=== PATIENT | male | born 1965 | race Caucasian/White ===

== ENCOUNTER 2019-03-06 18:53 | Emergency (ER) | payer BC ==
[2019-03-06 19:19] VITALS: BP 137/92
--- NOTE | 2019-03-06 19:32 | UC ---
General HPI - HPI Summary HPI Summary: Friday, pt notes a spot on his L lower leg that he felt was mud. he brsuhed it off but then worried it may have been a tick so he aggressively scratched the site to ensure nothing remained. he is here today because the spot looks pink and he has concern that it is a bullseye. no fever, joint pains or other complaints. - History of Current Complaint Chief Complaint: NEPTALIkin Stated Complaint: TICK Time Seen by Provider: 03/06/19 19:01 Hx Obtained From: Patient Pain Intensity: 0 Associated Signs & Symptoms: Negative: Fever, Weakness - Allergy/Home Medications Allergies/Adverse Reactions: Allergies Allergy/AdvReac Type Severity Reaction Status Date / Time No Known Allergies Allergy Verified 03/06/19 19:12 Home Medications: Home Medications Allergy Meds Unknown 1 tab DAILY 03/06/19 [History Confirmed 03/06/19] Blood Pressure Med Unknown 1 tab DAILY 03/06/19 [History Confirmed 03/06/19] Omeprazole 1 tab QPM 03/06/19 [History Confirmed 03/06/19] PMH/Surg Hx/FS Hx/Imm Hx Cardiovascular History: Hypertension GI/ History: Gastroesophageal Reflux - Surgical History Surgical History: None - Family History Known Family History: Positive: Non-Contributory - Social History Lives: With Family Alcohol Use: Daily Alcohol Amount: 1 drink/day Substance Use Type: None Smoking Status (MU): Never Smoked Tobacco Review of Systems All Other Systems Reviewed And Are Negative: No Constitutional: Negative: Fever, Chills, Fatigue Skin: Positive: Rash - L lower leg Musculoskeletal: Negative: Arthralgia Neurological: Negative: Weakness, Paresthesia, Numbness Physical Exam Triage Information Reviewed: Yes Appearance: Well-Appearing Vital Signs: Initial Vital Signs Temp 98.7 F 03/06/19 19:13 Pulse 85 03/06/19 19:13 Resp 16 03/06/19 19:13 BP 137/92 03/06/19 19:13 Pulse Ox 98 03/06/19 19:13 Vital Signs Reviewed: Yes Eyes: Positive: Conjunctiva Clear ENT: Positive: Normal ENT inspection Neck: Positive: Supple Respiratory: Positive: No respiratory distress Musculoskeletal: Positive: ROM Intact, No Edema Neurological: Positive: Alert Psychological: Positive: Age Appropriate Behavior Skin Exam: Normal, Other - pink abrasion L medial lower leg. Not a bullseye and not red or warm and no swelling or streaking. Course/Dx - Differential Dx - Multi-Symptom Differential Diagnoses: Other - No rash of Lyme disease. Not definite tick bite and beyond window of single dose tx to prevent Lyme disease. no concern for infection at site. - Diagnoses Provider Diagnosis: Abrasion of left leg Discharge ED - Sign-Out/Discharge Documenting (check all that apply): Patient Departure All imaging exams completed and their final reports reviewed: No Studies - Discharge Plan Condition: Stable Disposition: HOME Patient Education Materials: Lyme Disease (ED), Tick Bite (ED) Referrals: Loli Stoner MD [Primary Care Provider] - If Needed - Billing Disposition and Condition Condition: STABLE Disposition: Home
== END 2019-03-06 19:38 | disposition home or self-care (01) ==
LOC: UCCORT 18:53
DX: S80.812A Abrasion, left lower leg, initial encounter (principal); Y33.XXXA Other specified events, undetermined intent, initial encounter; Y92.9 Unspecified place or not applicable; I10 Essential (primary) hypertension; K21.9 Gastro-esophageal reflux disease without esophagitis
CPT/HCPCS: 99201; G0463